=== PATIENT | male | born 1940 | race Caucasian/White ===

== ENCOUNTER → 2017-07-13 | Outpatient (CLI) | payer MEDICARE, BC | END | disposition home or self-care (01) | LOC: PCVCCLINIC 13:37 | PROVIDERS: ATTEND Internal Medicine Cardiovascular Disease | DX: I48.0 Paroxysmal atrial fibrillation (principal); E78.00 Pure hypercholesterolemia, unspecified; I10 Essential (primary) hypertension | CPT/HCPCS: 36415; 80061; 93005; G0463 ==

== ENCOUNTER → 2017-08-03 | Outpatient (CLI) | payer MEDICARE, BC ==
[~2017-08-03] MED LIST: REGADENOSON 0.4 MG/5 ML DISP.SYRIN. IV
== END | disposition home or self-care (01) ==
LOC: PCVCIMAG 11:22
DX: I08.1 Rheumatic disorders of both mitral and tricuspid valves (principal); I48.1 Persistent atrial fibrillation; E78.00 Pure hypercholesterolemia, unspecified; I10 Essential (primary) hypertension; R94.31 Abnormal electrocardiogram [ECG] [EKG]; Z79.899 Other long term (current) drug therapy
CPT/HCPCS: 78452; 93005; 93017; 93306; A9500; G0463; J2785

== ENCOUNTER → 2017-08-25 | Outpatient (CLI) | payer MEDICARE, BC ==
[~2017-08-25] MED LIST changes: +BENZOCAINE ONE 20% MUCOSAL SPRAY.; +IV NORMAL SALINE 1000ML BAG 1,000 ML; +MIDAZOLAM HCL/PF 2 MG/2 ML VIAL.; -REGADENOSON 0.4 MG/5 ML DISP.SYRIN. IV; +fentaNYL PF VIAL 100 MCG/2 ML VIAL
== END | disposition home or self-care (01) ==
LOC: PCVCINTER 08:49
DX: I34.0 Nonrheumatic mitral (valve) insufficiency (principal); I70.0 Atherosclerosis of aorta; I48.91 Unspecified atrial fibrillation
CPT/HCPCS: 92960; 93312; 93325; 99152; 99153; J2250; J3010; J7030

== ENCOUNTER → 2018-01-01 | Outpatient (CLI) | payer MEDICARE, BC | END | disposition home or self-care (01) | LOC: PCVCIMAG 10:46 | DX: I34.0 Nonrheumatic mitral (valve) insufficiency (principal); R06.09 Other forms of dyspnea; I48.91 Unspecified atrial fibrillation | CPT/HCPCS: 93308 ==

== ENCOUNTER → 2018-01-03 | Outpatient (CLI) | payer MEDICARE, BC | END | disposition home or self-care (01) | LOC: PCVCCLINIC 15:59 | DX: I48.0 Paroxysmal atrial fibrillation (principal); I44.0 Atrioventricular block, first degree; E78.5 Hyperlipidemia, unspecified; I10 Essential (primary) hypertension; Z79.899 Other long term (current) drug therapy | CPT/HCPCS: 80061; 93005; G0463 ==

== ENCOUNTER → 2018-03-12 | Outpatient (CLI) | payer MEDICARE, BC | END | disposition home or self-care (01) | LOC: PCVCCLINIC 14:26 | PROVIDERS: ATTEND Internal Medicine Cardiovascular Disease | DX: I48.91 Unspecified atrial fibrillation (principal); E78.5 Hyperlipidemia, unspecified; I34.1 Nonrheumatic mitral (valve) prolapse; D68.59 Other primary thrombophilia; R00.1 Bradycardia, unspecified | CPT/HCPCS: 93005; G0463 ==

== ENCOUNTER → 2018-09-13 | Outpatient (CLI) | payer MEDICARE, BC | END | disposition home or self-care (01) | LOC: PCVCCLINIC 14:34 | PROVIDERS: ATTEND Internal Medicine Cardiovascular Disease | DX: I48.0 Paroxysmal atrial fibrillation (principal); I10 Essential (primary) hypertension; E78.5 Hyperlipidemia, unspecified; I44.0 Atrioventricular block, first degree; R00.1 Bradycardia, unspecified; Z79.899 Other long term (current) drug therapy | CPT/HCPCS: 36415; 80061; 93005; G0463 ==